=== PATIENT | female | born 1985 | race Caucasian/White ===

== ENCOUNTER 2018-02-03 00:01 | Emergency (ER) | payer OTHER ==
[~2018-02-03] VITALS: Ht 154.9 cm; Wt 55.3 kg
[~2018-02-03 00:01] MED LIST: PER5 PO; PROMETHAZINE12.5 M4 PO; TOR10 PO; ZOLOFT100 MG PO
[2018-02-03 00:31] VITALS: Ht 154.9 cm; Wt 55.3 kg
[2018-02-03 01:50] VITALS: BP 122/89
== END 2018-02-03 01:50 | disposition home or self-care (01) ==
LOC: ED 00:01
DX: S83.92XA Sprain of unspecified site of left knee, initial encounter (principal); Z88.8 Allergy status to other drugs, medicaments and biological substances; X50.3XXA Overexertion from repetitive movements, initial encounter; Y93.11 Activity, swimming; Y92.89 Other specified places as the place of occurrence of the external cause; Y99.8 Other external cause status; Z88.0 Allergy status to penicillin
CPT/HCPCS: J1885

== ENCOUNTER 2019-05-11 16:48 | Emergency (ER) | payer OTHER ==
[~2019-05-11] VITALS: Ht 154.9 cm; Wt 59.4 kg
[2019-05-11 16:58] VITALS: Ht 154.9 cm; Wt 59.4 kg
[2019-05-11 17:33] LABS: BASOPHIL % 0.2 % (0-2); PLATELET COUNT 195 x10^3mcL (130-400); RED CELL DISTRIBUTION WIDTH 12.9 % (11.5-14.5)
[2019-05-11 17:44] LABS: CALCIUM 8.5 mg/dL (8.5-10.1); CARBON DIOXIDE 27.6 mmol/L (21-32); CHLORIDE SERUM 102 mmol/L (98-107); CREATININE SERUM 0.9 mg/dL (0.6-1.0); GFR1 > 60 mL/min; GLUCOSE SERUM 93 mg/dL (74-106); POTASSIUM SERUM 3.4 mmol/L (3.5-5.1); SODIUM SERUM 138 mmol/L (136-145)
[2019-05-11 17:48] LABS: ALBUMIN 3.6 g/dL (3.4-5.0); ALKALINE PHOSPHATASE 121 U/L (46-116); ALT/SGPT 82 U/L (14-59); AST/SGOT 54 U/L (15-37); BILIRUBIN TOTAL 0.5 mg/dL (0.20-1.00); TOTAL PROTEIN, SERUM 7.9 g/dL (6.4-8.2)
[2019-05-11 18:58] LABS: UA SPECIFIC GRAVITY 1.025 (1.005-1.035); microscopic required? YES; urine erythrocyte NEGATIVE (NEGATIVE)
[2019-05-11 22:57] VITALS: BP 113/71
== END 2019-05-11 22:57 | disposition left against medical advice (07) ==
LOC: ED 16:48
PROVIDERS: Emergency Medicine
DX: N12 Tubulo-interstitial nephritis, not specified as acute or chronic (principal)
CPT/HCPCS: J1885; J2270; J2405; J3010; J3490; J7030